=== PATIENT | female | born 1970 | race Two or more races ===

== ENCOUNTER 2023-12-23 09:04 | Emergency (ER) | payer BC ==
[~2023-12-23] VITALS: Ht 170.2 cm; Wt 83.0 kg
[2023-12-23] MEDS ORDERED: METF-886 PO (09:19)
[2023-12-23] MEDS ORDERED: LOSA50TA39 PO (09:19)
[2023-12-23] MEDS ORDERED: BUPR200T3 PO (09:19)
[2023-12-23] MEDS ORDERED: AMLO10TA59 PO (09:19)
[2023-12-23] MEDS ORDERED: MEDR10TA10 PO (09:19)
[2023-12-23] MEDS ORDERED: PANT40TA49 PO (09:19)
[2023-12-23] MEDS ORDERED: KETOROLAC TROMETHAMINE 30 MG INJ ONE (09:32)
[2023-12-23] MEDS: KETOROLAC TROMETHAMINE 30 MG INJ IM ONE (09:42)
[2023-12-23 09:57] LABS: EOSINOPHILS # (AUTO) 0.2 K/uL (0.0-0.7); EOSINOPHILS % (AUTO) 3.5 % (0.0-7.0); HEMATOCRIT 34.2 % (31.2-41.9); HEMOGLOBIN 11.5 g/dL (10.9-14.3); LYMPHOCYTES # (AUTO) 1.4 K/uL (0.8-4.8); LYMPHOCYTES % (AUTO) 30.1 % (20.5-51.5); MEAN CORPUSCULAR HEMOGLOBIN 26.8 uug (24.7-32.8); MEAN CORPUSCULAR HGB CONC 34 g/dL (32.3-35.6); MEAN CORPUSCULAR VOLUME 79.8 fL (75.5-95.3); MONOCYTES # (AUTO) 0.4 K/uL (0.1-1.30); MONOCYTES % (AUTO) 7.8 % (0.0-11.0); NEUTROPHILS # (AUTO) 2.8 K/uL (1.8-8.9); NEUTROPHILS % (AUTO) 57.6 % (38.5-71.5); PLATELET COUNT (AUTO) 285 K/uL (179-408); RED BLOOD CELL COUNT(AUTO) 4.29 MIL/uL (3.63-4.92); RED CELL DISTRIBUTION WIDTH 16.1 % (12.3-17.7); WHITE BLOOD COUNT (AUTO) 4.8 K/uL (3.8-11.8)
[2023-12-23 10:02] LABS: DIFFERENTIAL COMMENT 1
[2023-12-23 10:08] LABS: CALCIUM 8.9 mg/dL (8.5-10.1); CREATININE 0.6 mg/dL (0.6-1.3)
[2023-12-23] MEDS ORDERED: GABA300C PO (10:17)
[2023-12-23 10:25] VITALS: BP 142/75; TEMP 98; O2SAT 98
== END 2023-12-23 11:19 | disposition home or self-care (01) ==
LOC: ER 09:09
DX: R51.9 Headache, unspecified (principal); K21.9 Gastro-esophageal reflux disease without esophagitis; E11.9 Type 2 diabetes mellitus without complications; F32.A Depression, unspecified; F17.200 Nicotine dependence, unspecified, uncomplicated; Z79.899 Other long term (current) drug therapy; Z88.1 Allergy status to other antibiotic agents
CPT/HCPCS: 99283; 80048; 85025; 36415; 96372; J1885; A4606; A4663

== ENCOUNTER 2024-06-08 23:09 | Emergency (ER) | payer BC ==
[~2024-06-08] VITALS: Ht 167.6 cm; Wt 82.6 kg
[~2024-06-08 23:09] MED LIST: AMLO10TA59 PO; BUPR200T3 PO; GABA300C PO; LOSA50TA39 PO; MEDR10TA10 PO; METF-886 PO; PANT40TA49 PO
[2024-06-08] MEDS ORDERED: DICYCLOMINE HCL LIQ 10 MG/5 ML UDC ONE (23:35)
[2024-06-08] MEDS ORDERED: NITROGLYCERIN OINT 1 GM PACKET TP ONE (23:36)
[2024-06-08] MEDS ORDERED: LIDOCAINE VISCUS 2% 15 ML UDC ONE (23:36)
[2024-06-08] MEDS ORDERED: MAG HYDROX/AL HYDROX/SIMETH 30 ML LIQUID UDC ONE (23:36)
[2024-06-08] MEDS: NITROGLYCERIN OINT 1 GM PACKET TP ONE (23:40)
[2024-06-08 23:45] LABS: CALCIUM 9.2 mg/dL (8.5-10.1); CARBON DIOXIDE 25 mmol/L (21-32); CHLORIDE 105 mmol/L (98-107); CREATININE 0.7 mg/dL (0.6-1.3); GLUCOSE 153 mg/dL (74-106); SODIUM SERUM 139 mmol/L (136-145); UREA NITROGEN, BLOOD 14 mg/dL (7-18)
[2024-06-08] MEDS: MAG HYDROX/AL HYDROX/SIMETH 30 ML LIQUID UDC PO ONE (23:45)
[2024-06-08] MEDS: DICYCLOMINE HCL LIQ 10 MG/5 ML UDC PO ONE (23:45)
[2024-06-08] MEDS: LIDOCAINE VISCUS 2% 15 ML UDC MM ONE (23:58)
[2024-06-09 00:02] LABS: ALANINE AMINOTRANSFERASE 60 U/L (14-59); ALBUMIN 3.5 g/dL (3.4-5.0); ALKALINE PHOSPHATASE 122 U/L (50-136); ASPARTATE AMINOTRANSFERASE 29 U/L (15-37); BILIRUBIN,DIRECT 0.1 mg/dL (0.0-0.2); BILIRUBIN,TOTAL 0.2 mg/dL (0.2-1.0); NT-PRO BNP 27 pg/mL (0-125); TOTAL PROTEIN, SERUM 7.1 g/dL (6.4-8.2)
[2024-06-09] MEDS ORDERED: ASPIRIN 81 MG TAB.CHEW ONE (00:03)
[2024-06-09 00:17] LABS: BASOPHILS % (AUTO) 0.6 % (0.0-2.0); DIFFERENTIAL COMMENT 1; EOSINOPHILS # (AUTO) 0.2 K/uL (0.0-0.7); EOSINOPHILS % (AUTO) 4.2 % (0.0-7.0); HEMATOCRIT 37.1 % (31.2-41.9); HEMOGLOBIN 12.1 g/dL (10.9-14.3); LYMPHOCYTES % (AUTO) 33.9 % (20.5-51.5); MEAN CORPUSCULAR HEMOGLOBIN 25.1 uug (24.7-32.8); MEAN CORPUSCULAR HGB CONC 33 g/dL (32.3-35.6); MEAN CORPUSCULAR VOLUME 77.2 fL (75.5-95.3); MONOCYTES # (AUTO) 0.5 K/uL (0.1-1.30); MONOCYTES % (AUTO) 7.8 % (0.0-11.0); NEUTROPHILS # (AUTO) 3.1 K/uL (1.8-8.9); NEUTROPHILS % (AUTO) 53.5 % (38.5-71.5); PLATELET COUNT (AUTO) 262 K/uL (179-408); RED BLOOD CELL COUNT(AUTO) 4.81 MIL/uL (3.63-4.92); RED CELL DISTRIBUTION WIDTH 17.2 % (12.3-17.7); WHITE BLOOD COUNT (AUTO) 5.9 K/uL (3.8-11.8)
[2024-06-09] MEDS: ASPIRIN 81 MG TAB.CHEW PO ONE (00:18)
[2024-06-09] MEDS ORDERED: DICY20TA11 PO (01:06)
[2024-06-09] MEDS ORDERED: LANS30CA56 PO (01:06)
[2024-06-09 02:18] VITALS: BP 129/74; TEMP 98.2; O2SAT 97
== END 2024-06-09 02:15 | disposition home or self-care (01) ==
LOC: ER 23:13
DX: R07.89 Other chest pain (principal); E11.9 Type 2 diabetes mellitus without complications; K21.9 Gastro-esophageal reflux disease without esophagitis; F32.A Depression, unspecified; F17.210 Nicotine dependence, cigarettes, uncomplicated; Z79.899 Other long term (current) drug therapy; Z88.8 Allergy status to other drugs, medicaments and biological substances
CPT/HCPCS: 36415; 71045; 84484; 85025; 93005; A4606; A4663